=== PATIENT | female | born 1990 | race Caucasian/White ===

== ENCOUNTER 2016-08-31 11:33 | Emergency (ER) | payer BC ==
[2016-08-31 11:40] VITALS: TEMP 98.4
--- NOTE | 2016-08-31 12:13 | EDPHY ---
H & P Stated Complaint: INR high/sent by PCP Time Seen by Provider: 08/31/16 11:53 HPI/ROS: CHIEF COMPLAINT: ELEVATED INR HISTORY OF PRESENT ILLNESS: Patient is a 26-year-old healthy female recently diagnosed with Crohn's with an MRI. The MRI incidentally diagnosed a portal vein thrombosis. She was started on Coumadin 5 mg a day on August 25. She is also taking Lovenox injections. Today she had her INR checked and it was 8. The clinic told her that there measurements are sometimes not very accurate and told her to come to the emergency department for further management. The patient is asymptomatic. She has not had any blood in her stool. No unusual bruising although she does have some bruising around the Lovenox injections. She is currently menstruating states that it does not seen heavier than usual. No fevers. REVIEW OF SYSTEMS: Constitutional: denies: chills, fever, recent illness, recent injury EENTM: denies: blurred vision, double vision, nose congestion Respiratory: denies: cough, shortness of breath Cardiac: denies: chest pain, irregular heart rate, lightheadedness, palpitations Gastrointestinal/Abdominal: denies: abdominal pain, diarrhea, nausea, vomiting, blood streaked stools Genitourinary: denies: dysuria, frequency, hematuria, pain Musculoskeletal: denies: joint pain, muscle pain Skin: denies: lesions, rash, jaundice, bruising Neurological: denies: headache, numbness, paresthesia, tingling, dizziness, weakness Hematologic/Lymphatic: See HPI Immunologic/allergic: denies: HIV/AIDS, transplant EXAM: GENERAL: Well-appearing, well-nourished and in no acute distress. HEAD: Atraumatic, normocephalic. EYES: Pupils equal round and reactive to light, extraocular movements intact, sclera anicteric, conjunctiva are normal. ENT: TMs normal, nares patent, oropharynx clear without exudates. Moist mucous membranes. NECK: Normal range of motion, supple without lymphadenopathy or JVD. LUNGS: Breath sounds clear to auscultation bilaterally and equal. No wheezes rales or rhonchi. HEART: Regular rate and rhythm without murmurs, rubs or gallops. ABDOMEN: Soft, nontender, normoactive bowel sounds. No guarding, no rebound. No masses appreciated. BACK: No CVA tenderness, no spinal tenderness, step-offs or deformities EXTREMITIES: Normal range of motion, no pitting or edema. No clubbing or cyanosis. NEUROLOGICAL: Cranial nerves II through XII grossly intact. Normal speech, normal gait. 5/5 strength, normal movement in all extremities, normal sensation PSYCH: Normal mood, normal affect. SKIN: Several small bruises at Lovenox injections sites and near IV starts. Source: Patient Exam Limitations: No limitations - Personal History Current Tetanus/Diphtheria Vaccine: Yes Current Tetanus Diphtheria and Acellular Pertussis (TDAP): Yes - Medical/Surgical History Hx Asthma: No Hx Chronic Respiratory Disease: No Hx Diabetes: No Hx Cardiac Disease: No Hx Renal Disease: No Hx Cirrhosis: No Hx Alcoholism: No Hx HIV/AIDS: No Hx Splenectomy or Spleen Trauma: No Other PMH: crohns. - Family History Significant Family History: No pertinent family hx - Social History Smoking Status: Never smoked Alcohol Use: Sober Drug Use: None Constitutional: Initial Vital Signs Temperature (C) 36.9 C 08/31/16 11:36 Heart Rate 75 08/31/16 11:36 Respiratory Rate 16 08/31/16 11:36 Blood Pressure 111/65 08/31/16 11:36 O2 Sat (%) 98 08/31/16 11:36 O2 Delivery Mode Room Air Allergies/Adverse Reactions: No Known Allergies Allergy (Unverified 02/06/15 00:01) Home Medications: Medication Instructions Recorded Certolizumab Pegol [Cimzia] 400 mg SQ 02/06/15 Coumadin 08/31/16 Lovenox 08/31/16 Medical Decision Making ED Course/Re-evaluation: The according to the reversal protocol recommendations are to hold Coumadin dosing. P. o. vitamin K is optional. Since the patient is not having any unusual bleeding currently I will hold off. We will verify her INR level. 1:10 p.m. the patient is INR here 6.3. I will have her hold her Coumadin for 2 days and discontinue her Lovenox as well. She will then get her INR checked on Wednesday and restart likely a half dose. Patient is happy with this plan and declines further workup or testing at this time. Differential Diagnosis: Partial list of the Differential diagnosis considered include but were not limited to; Coumadin toxicity, hemorrhaging and although unlikely based on the history and physical exam, I also considered , infection. I discussed these differential diagnoses and the plan with the patient as well as the usual and expected course. The patient understands that the diagnosis is provisional and that in medicine we are not always correct and that further workup is often warranted. Usual and customary warnings were given. All of the patient's questions were answered. The patient was instructed to return to the emergency department should the symptoms at all worsen or return, otherwise to followup with the physician as we discussed. - Data Points Laboratory Results: 08/31/16 11:57 PT 57.4 SEC H SEC (12.0-15.0) INR 6.34 H* (0.83-1.16) APTT 66.4 SEC H SEC (23.0-38.0) Departure - Departure Disposition: Home, Routine, Self-Care Clinical Impression: Coumadin toxicity Qualifiers: Encounter type: initial encounter Injury intent: accidental or unintentional Qualified Code(s): T45.511A - Poisoning by anticoagulants, accidental ( unintentional), initial encounter Condition: Fair Instructions: Warfarin (By mouth) Additional Instructions: Do not use her Coumadin today or tomorrow. Have your levels Re checked on Wednesday and resume 2.5 mg per day unless otherwise advised by your physician. Referrals: Navid Mcnamara RN [Registered Nurse] - As per Instructions
[2016-08-31 12:18] LABS: APTT 66.4 SEC (23.0-38.0)
[2016-08-31 12:36] LABS: PROTIME(PATIENT) 57.4 SEC (12.0-15.0)
[2016-08-31 12:40] LABS: INR 6.34 (0.83-1.16)
[2016-08-31 13:37] VITALS: BP 118/65; PULSE 69; RESP 18; O2SAT 96
== END 2016-08-31 13:37 | disposition home or self-care (01) ==
DX: T45.511A Poisoning by anticoagulants, accidental (unintentional), initial encounter (principal); Z79.01 Long term (current) use of anticoagulants

== ENCOUNTER 2016-10-30 10:25 | Emergency (ER) | payer BC ==
[2016-10-30 10:32] VITALS: TEMP 98.2
--- NOTE | 2016-10-30 10:37 | EDPHY ---
H & P Stated Complaint: SOB, pain in rib area left side. HX- thrombosis HPI/ROS: CHIEF COMPLAINT: Left-sided pleuritic chest pain. HISTORY OF PRESENT ILLNESS: The patient is a 26-year-old female with a history of portal vein thrombosis in July on Coumadin who presents with left lower chest pain that began last night. The pain is pleuritic in nature and does not radiate. This pain is similar to the pain she felt after a skiing accident on July. She denies recent trauma, recent sickness, cough, fever, shortness of breath, nausea, vomiting, calf pain, diarrhea, urinary symptoms. She is compliant with her anticoagulation. She had a full workup following the portal vein thrombosis with no obvious cause identified. REVIEW OF SYSTEMS: A ten point review of systems was performed and is negative with the exception of the items mentioned in the HPI. Source: Patient Exam Limitations: No limitations - Personal History LMP (Females 10-55): 1-7 Days Ago Current Tetanus/Diphtheria Vaccine: Yes Current Tetanus Diphtheria and Acellular Pertussis (TDAP): Yes - Medical/Surgical History Hx Asthma: No Hx Chronic Respiratory Disease: No Hx Diabetes: No Hx Cardiac Disease: No Hx Renal Disease: No Hx Cirrhosis: No Hx Alcoholism: No Hx HIV/AIDS: No Hx Splenectomy or Spleen Trauma: No Other PMH: crohn's disease. portal vein thrombosis. shingles - Social History Smoking Status: Never smoked Additional Social History: Nonsmoker. Student at [employer]. - Physical Exam Exam: General Appearance: Alert. Vital signs reviewed. Eyes: Pupils equal and round, no conjunctival injection, no discharge. Anicteric. ENT, Mouth: Mucous membranes are moist, no oropharyngeal erythema or edema. Neck: No lymphadenopathy, supple. Respiratory: Lungs are clear to auscultation; no wheezes, rales, or rhonchi. Thorax: No ribcage tenderness. No crepitus. Cardiovascular: Regular rate and rhythm; no murmur, rub, or gallop. Gastrointestinal: Abdomen is soft and nontender, no masses or organomegaly, bowel sounds normal. Skin: Warm and dry, no rashes on exposed skin, normal color. Back: Nontender to palpation over the thoracolumbar spine. No CVAT. Extremities: No lower extremity edema, no calf tenderness or swelling. Neurological: Alert and oriented. Moving all four extremities easily and equally. Psychiatric: Normal affect. Constitutional: Initial Vital Signs Temperature (C) 36.8 C 10/30/16 10:29 Heart Rate 70 10/30/16 10:29 Respiratory Rate 15 10/30/16 10:29 Blood Pressure 124/66 H 10/30/16 10:29 O2 Sat (%) 97 10/30/16 10:29 O2 Delivery Mode Room Air Allergies/Adverse Reactions: No Known Allergies Allergy (Unverified 02/06/15 00:01) Home Medications: Medication Instructions Recorded Certolizumab Pegol [Cimzia] 400 mg SQ 02/06/15 Coumadin 08/31/16 Lovenox 08/31/16 Medical Decision Making - Diagnostics Imaging Results: Two-view chest x-ray reviewed by me in PACs. No acute pulmonary disease. CT angiogram of the chest reported to me is negative for PE. The spleen appears normal. Imaging: Discussed imaging studies w/ on call Radiologist ED Course/Re-evaluation: 26-year-old female presents with left-sided chest pain that began last night. This pain is pleuritic and similar to chest pain she had after a skiing trauma in July. She has a history of portal vein thrombosis diagnosed at that time and is currently anticoagulated on Coumadin. An IV was established and labs ordered. Chest x-ray obtained. Chest x-ray as interpreted by radiology is negative for acute process. I reviewed the patient's laboratory studies. INR 2.2. 1208: Reassessed patient. We discussed the results of her chest x-ray. She reports that the pain is getting slightly worse. I recommended chest CT to her to rule-out blood clot. She is comfortable with this plan. 1300: CT results called to me by Dr. Weiss, radiology. He reports no PE. 1310: I spoke again with Dr. Weiss -- we discussed the possibility of this patient's pain being related to splenic infarct or injury. He has recommending delayed imaging to assess the spleen. 1337: Delayed splenic imaging is also negative per radiology. She will be discharged in good condition. The etiology of her pain is not been discovered. There is no evidence of a pneumonia, pneumothorax, pulmonary embolus, splenic injury or infarct. She and I discussed the possibility of this being a costochondritis/pleurisy. She will continue her anticoagulation, watch and wait , and see if the symptoms evolve. She understands the danger signs that should prompt her to be re-evaluated. - Data Points Laboratory Results: Laboratory Results 10/30/16 10:55 10/30/16 10:55 Departure - Departure Disposition: Home, Routine, Self-Care Clinical Impression: Pleuritic chest pain Condition: Good Instructions: Pleurisy (ED) Additional Instructions: Follow up with your primary care provider for reevaluation of ongoing symptoms. Take 650mg Tylenol every 4-6 hours as needed for pain. Return for any serious worsening of condition. Referrals: BRENDEN CHEN [Other] - As per Instructions Report Scribed for: Dianelys Velez Report Scribed by: Slava Bradley Date of Report: 10/30/16 Time of Report: 10:42 Physician Review and Approval Statement: 10/30/16 10:37 Portions of this note were transcribed by the medical clerical assistant. I, Dr. Dianelys Velez, personally performed the history, physical exam, and medical decision- making; and confirmed the accuracy of the information in the transcribed note.
[2016-10-30 11:09] LABS: % IMMATURE GRANULYOCYTES 0.3 % (0.0-1.1); ABSOLUTE IMMATURE GRANULOCYTES 0.02 10^3/uL (0.00-0.10); ADD DIFF? NO; ADD MORPH? NO; ADD SCAN? NO; ATYPICAL LYMPHOCYTE FLAG 20 (0-99); FRAGMENT RBC FLAG 0 (0-99); HEMATOCRIT 39.2 % (38.0-47.0); LEFT SHIFT FLG 0 (0-99); LIPEMIA HEMOLYSIS FLAG 80 (0-99); MEAN CELL HEMOGLOBIN 27.3 pg (27.9-34.1); MEAN CELL HEMOGLOBIN CONCENTR. 33.2 g/dL (32.4-36.7); MEAN CELL VOLUME 82.4 fL (81.5-99.8); MEAN PLATELET VOLUME 9.6 fL (8.7-11.7); PLATELET CLUMPS FLAG 0 (0-99); PLATELET COUNT 296 10^3/uL (150-400); RED BLOOD CELL COUNT 4.76 10^6/uL (4.18-5.33); RED CELL DISTRIBUTION WIDTH 14.3 % (11.5-15.2)
[2016-10-30 11:28] LABS: INR 2.21 (0.83-1.16); PROTIME(PATIENT) 24.7 SEC (12.0-15.0)
[2016-10-30 11:32] LABS: ANION GAP 12 mEq/L (8-16); CALCIUM 9.5 mg/dL (8.5-10.4); CARBON DIOXIDE 25 mEq/l (22-31); CHLORIDE 105 mEq/L (97-110); CREATININE 0.7 mg/dL (0.6-1.0); GLOMERULAR FILTRATION RATE > 60; GLUCOSE 99 mg/dL (70-100); POTASSIUM 3.8 mEq/L (3.5-5.2); SODIUM 142 mEq/L (134-144)
[2016-10-30] MEDS ORDERED: IOPAMIDOL (ISOVUE 370) 100 ML BTL IV ONE (12:22)
[2016-10-30 13:51] VITALS: BP 96/59; PULSE 81; RESP 16; O2SAT 98
== END 2016-10-30 13:52 | disposition home or self-care (01) ==
DX: R07.89 Other chest pain (principal); Z79.01 Long term (current) use of anticoagulants
CPT/HCPCS: Q9967